=== PATIENT | male | born 1970 | race Hispanic/Latino ===

== ENCOUNTER 2018-11-18 09:55 | Emergency (ER) | payer SELFPAY ==
[~2018-11-18] VITALS: Ht 170.2 cm; Wt 90.0 kg
[~2018-11-18 09:55] MED LIST: BENTYL20 MG OR; CIPRO500 MG OR; FLEXERIL5 MG PO; INDOCIN50 MG/CAP PO; LORTAB 1010 MG PO; LORTAB 5 OR; LORTAB 5-325 MG1 TAB PO; LORTAB 5/3255 MG PO; MEDDOSEPAK PO; MELOXICAM7.5 MG PO; NAPROSYN375 MG PO; NAPROSYN500 MG OR; NAPROSYN500 MG PO; NO HOME MEDS; PERCOCET 5/325M1 TAB PO; PRILOSEC20 MG/CAP PO; PROBENECID/COLC1 TAB PO; TRAMADOL HCL50 MG PO; ULTRAM50 MG OR; ULTRAM50 MG PO
[2018-11-18 11:02] LABS: HEMATOCRIT 44.4 % (39.0-50.0); HEMOGLOBIN 15.5 g/dl (14.0-18.0); IMMATURE GRANULOCYTES 0.3 % (0.0-5.0); MEAN CELL VOLUME 95.7 fL CALC (80.0-100.0); MEAN CORPUSCULAR HGB 33.4 pG CALC (26.0-32.0); MEAN CORPUSCULAR HGB CONC 34.9 g/L CALC (32.0-36.0); NEUT# 3.75 thou/uL (1.82-7.42); RED BLOOD COUNT 4.64 mill/uL (4.70-6.10); RED CELL DISTRI WIDTH 12.3 % (11.5-15.5)
[2018-11-18 11:14] LABS: ALBUMIN 4.2 g/dL (3.2-5.0); ALKALINE PHOSPHATASE 88 u/l (38-126); ANION GAP 13 (6-22 (CALC)); BILIRUBIN, TOTAL 0.4 mg/dL (0.0-1.4); BUN 12 mg/dL (9-20); BUN/CREATININE RATIO 11 (12-20 (CALC)); CARBON DIOXIDE 25 mmol/l (22-30); CHLORIDE 104 mmol/l (95-108); CREATININE 1.1 mg/dL (0.7-1.3); GFR > 60 ML/MIN (>=60 (CALC)); GFR FOR AFR.AMER. > 60 ML/MIN (>=60 (CALC)); LIPASE 76 u/l (23-300); POTASSIUM 4.4 mmol/l (3.5-5.1); SGOT/AST 29 u/l (17-59); SODIUM 137 mmol/l (137-146); TOTAL PROTEIN 8.1 g/dL (6.3-8.2)
[2018-11-18 11:46] LABS: URINE BILIRUBIN - DIPSTICK NEGATIVE (NEGATIVE); URINE BLOOD DIPSTICK NEGATIVE (NEGATIVE); URINE COLOR YELLOW; URINE GLUCOSE - DIPSTICK NEGATIVE (NEGATIVE); URINE KETONE NEGATIVE (NEGATIVE); URINE LEUK ESTERASE NEGATIVE (NEGATIVE); URINE NITRITE - DIPSTICK NEGATIVE (Negative); URINE PH 5.5 (4.5-8.0); URINE PROTEIN - DIPSTICK NEGATIVE (NEG-TRACE); URINE SPECIFIC GRAVITY <=1.005; URINE UROBILINOGEN - DIPSTICK 0.2 E.U./dL (0.2)
[2018-11-18] MEDS ORDERED: CIPROFLOXACN500 MG PO (14:11)
[2018-11-18] MEDS ORDERED: METRONIDAZOL500 MG PO (14:11)
[2018-11-18] MEDS ORDERED: TORADOL PO (14:11)
[2018-11-18 14:40] VITALS: BP 140/68
== END 2018-11-18 14:40 | disposition home or self-care (01) | DRG 392 ==
LOC: ED 09:55
PROVIDERS: Emergency Medicine
DX: K57.32 Diverticulitis of large intestine without perforation or abscess without bleeding (principal); I10 Essential (primary) hypertension
CPT/HCPCS: Q9967

== ENCOUNTER 2020-09-22 13:12 | Emergency (ER) | payer SELFPAY ==
[~2020-09-22] VITALS: Ht 170.2 cm; Wt 90.0 kg
[~2020-09-22 13:12] MED LIST changes: +CIPROFLOXACN500 MG PO; +METRONIDAZOL500 MG PO; +TORADOL PO
[2020-09-22 14:20] LABS: HEMATOCRIT 33.1 % (39.0-50.0); HEMOGLOBIN 12.1 g/dl (14.0-18.0); IMMATURE GRANULOCYTES 0.1 % (0.0-5.0); MEAN CELL VOLUME 93.2 fL CALC (80.0-100.0); MEAN CORPUSCULAR HGB 34.1 pG CALC (26.0-32.0); MEAN CORPUSCULAR HGB CONC 36.6 g/dL CAL (32.0-36.0); NEUT# 5.31 thou/uL (1.82-7.42); RED BLOOD COUNT 3.55 mill/uL (4.70-6.10); RED CELL DISTRI WIDTH 11.9 % (11.5-15.5)
[2020-09-22 14:48] LABS: ALBUMIN 3.8 g/dL (3.2-5.0); ALKALINE PHOSPHATASE 62 u/l (38-126); BUN 14 mg/dL (9-20); BUN/CREATININE RATIO 19 (12-20 (CALC)); CARBON DIOXIDE 23 mmol/l (22-30); CHLORIDE 100 mmol/l (95-108); CREATININE 0.8 mg/dL (0.7-1.3); GFR > 60 ML/MIN (>=60 (CALC)); GFR FOR AFR.AMER. > 60 ML/MIN (>=60 (CALC)); SODIUM 131 mmol/l (137-146); TOTAL PROTEIN 7.4 g/dL (6.3-8.2)
[2020-09-22 14:52] LABS: ANION GAP 11 (6-22 (CALC)); BILIRUBIN, TOTAL 0.9 mg/dL (0.0-1.4); POTASSIUM 3.4 mmol/l (3.5-5.1); SGOT/AST 117 u/l (17-59)
[2020-09-22 15:18] VITALS: BP 155/70
[2020-09-22] MEDS ORDERED: TRAMADOL HYDROC50 M1 PO (15:31)
== END 2020-09-22 15:53 | disposition home or self-care (01) | DRG 556 ==
LOC: ED 13:12
DX: M25.561 Pain in right knee (principal); M25.461 Effusion, right knee; I10 Essential (primary) hypertension; F17.200 Nicotine dependence, unspecified, uncomplicated

== ENCOUNTER 2022-02-12 01:25 | Emergency (ER) | payer SELFPAY ==
[~2022-02-12] VITALS: Ht 170.2 cm; Wt 88.0 kg
[~2022-02-12 01:25] MED LIST changes: +TRAMADOL HYDROC50 M1 PO
[2022-02-12 01:31] VITALS: BP 121/75
[2022-02-12 02:00] VITALS: BP 135/91
[2022-02-12 02:47] VITALS: BP 141/101
[2022-02-12 03:00] VITALS: BP 141/99
[2022-02-12] MEDS ORDERED: AMOX/K CLAV875 M1 PO (03:11)
[2022-02-12] MEDS ORDERED: NAPROXEN500 MG PO (03:11)
[2022-02-12 03:29] VITALS: BP 141/99
== END 2022-02-12 03:33 | disposition home or self-care (01) | DRG 605 ==
LOC: ED 01:25
DX: S51.811A Laceration without foreign body of right forearm, initial encounter (principal); S81.811A Laceration without foreign body, right lower leg, initial encounter; W54.0XXA Bitten by dog, initial encounter